=== PATIENT | female | born 1940 | race Caucasian/White ===

== ENCOUNTER 2016-07-23 10:56 | Day surgery (SDC) | payer OTHER, MEDICARE ==
[2016-07-23] MEDS ORDERED: TETRACAINE 0.5% OPHTH 1 DOSE AFFEYE ONE ×6 (11:07→14:44)
[2016-07-23] MEDS ORDERED: VIGAMOX 0.5% OPHTH 1 DOSE AFFEYE ONE ×6 (11:08→15:00)
[2016-07-23] MEDS ORDERED: PROLENSA OPHTH 1 DOSE AFFEYE ONE (11:19)
[2016-07-23] MEDS ORDERED: ALPHAGAN-P OPHTH 1 DOSE AFFEYE ONE (11:20)
[2016-07-23] MEDS ORDERED: AK-DILATE 2.5% OPHTH 1 DOSE OP ONE ×7 (11:21→14:24)
[2016-07-23] MEDS ORDERED: NS 500 ML IV 500 ML IV ONE (11:21)
[2016-07-23] MEDS ORDERED: MYDRIACIL OPHTH 1 DOSE AFFEYE ONE ×7 (11:21→14:24)
[2016-07-23] MEDS ORDERED: CYCLOGYL 1% OPHTH 1 DOSE OP ONE ×8 (11:21→14:23)
[2016-07-23] MEDS: VERSED ONE ×4 (14:08→14:20)
[2016-07-23] MEDS ORDERED: AK-DILATE 10% OPHTH 1 DOSE AFFEYE ONE ×2 (14:11→14:21)
[2016-07-23] MEDS ORDERED: BSS OPHTH (PLAIN) 500 ML with VANCOMYCIN HCL 500 MG VIAL 25 MG, ADRENALINE CHL INJ 1 MG IR ONE ×3 (14:40)
[2016-07-23] MEDS ORDERED: XYLOCAINE-MPF 1% IJ ONE (14:44)
[2016-07-23] MEDS ORDERED: ADRENALINE CHL INJ IJ ONE (14:44)
[2016-07-23] MEDS ORDERED: DUOVISC IO ONE (14:44)
[2016-07-23 15:33] VITALS: BP 120/55
== END 2016-07-23 15:25 | disposition home or self-care (01) ==
LOC: SURG1 10:56
PROVIDERS: ATTEND Ophthalmology
PROC: 08RJ3JZ Replacement of Right Lens with Synthetic Substitute, Percutaneous Approach (ICD-10-PCS; principal; 2016-07-23 15:45)
PROC: 08DJ3ZZ Extraction of Right Lens, Percutaneous Approach (ICD-10-PCS; principal; 2016-07-23 15:45)
PROC: 08J0XZZ Inspection of Right Eye, External Approach (ICD-10-PCS; principal; 2016-07-23 15:45)
DX: H25.11 Age-related nuclear cataract, right eye (principal); H25.011 Cortical age-related cataract, right eye; H52.221 Regular astigmatism, right eye
CPT/HCPCS: 99100; A4217; J0170; J2250; J3370

== ENCOUNTER 2016-09-24 07:11 | Day surgery (SDC) | payer OTHER, MEDICARE ==
[2016-09-24] MEDS ORDERED: NS 500 ML IV 500 ML IV ONE (07:29)
[2016-09-24] MEDS ORDERED: TETRACAINE 0.5% OPHTH 1 DOSE AFFEYE ONE ×4 (07:30→09:18)
[2016-09-24] MEDS ORDERED: VIGAMOX 0.5% OPHTH 1 DOSE AFFEYE ONE ×3 (07:31→07:41)
[2016-09-24] MEDS ORDERED: PROLENSA OPHTH 1 DOSE AFFEYE ONE (07:42)
[2016-09-24] MEDS ORDERED: ALPHAGAN-P OPHTH 1 DOSE AFFEYE ONE (07:43)
[2016-09-24] MEDS ORDERED: AK-DILATE 2.5% OPHTH 1 DOSE OP ONE ×4 (07:44→07:47)
[2016-09-24] MEDS ORDERED: MYDRIACIL OPHTH 1 DOSE AFFEYE ONE ×4 (07:44→07:47)
[2016-09-24] MEDS ORDERED: CYCLOGYL 1% OPHTH 1 DOSE OP ONE ×4 (07:44→07:47)
[2016-09-24] MEDS ORDERED: VERSED ONE ×2 (08:46→15:26)
[2016-09-24] MEDS ORDERED: FENTANYL INJ 100 mcg ONE (08:47)
[2016-09-24] MEDS ORDERED: VERSED IVP ONE (09:18)
[2016-09-24] MEDS ORDERED: AK-DILATE 10% OPHTH 1 DOSE AFFEYE ONE (09:21)
[2016-09-24] MEDS ORDERED: HIBICLENS WASH EXT ONE (09:25)
[2016-09-24] MEDS ORDERED: XYLOCAINE-MPF 1% IJ ONE (09:32)
[2016-09-24] MEDS ORDERED: DUOVISC IO ONE (09:32)
[2016-09-24] MEDS ORDERED: ADRENALINE CHL INJ IJ ONE (09:32)
[2016-09-24] MEDS ORDERED: BSS OPHTH (PLAIN) 500 ML with VANCOMYCIN HCL 500 MG VIAL 25 MG, ADRENALINE CHL INJ 1 MG IR ONE ×3 (09:32)
[2016-09-24] MEDS ORDERED: TobraDEX OPHTH SUSP 1 DOSE AFFEYE ONE (09:46)
[2016-09-24 10:26] VITALS: BP 120/82
== END 2016-09-24 10:12 | disposition home or self-care (01) ==
LOC: SURG1 07:11
PROVIDERS: ATTEND Ophthalmology
PROC: 08DJ3ZZ Extraction of Right Lens, Percutaneous Approach (ICD-10-PCS; principal; 2016-09-24 07:30)
PROC: 08RJ3JZ Replacement of Right Lens with Synthetic Substitute, Percutaneous Approach (ICD-10-PCS; principal; 2016-09-24 07:30)
DX: H25.11 Age-related nuclear cataract, right eye (principal); H25.011 Cortical age-related cataract, right eye; H52.221 Regular astigmatism, right eye
CPT/HCPCS: 99100; A4217; J0170; J2250; J3010; J3370